=== PATIENT | male | born 1960 | race Hispanic/Latino ===

== ENCOUNTER 2021-09-28 12:58 | Outpatient (CLI) | payer OTHER | END 2021-09-28 12:59 | disposition home or self-care (01) | LOC: CSHWCC 12:58 | PROVIDERS: ATTEND Nurse Practitioner Family | DX: R60.0 Localized edema (principal) | CPT/HCPCS: 99203; G0463 ==

== ENCOUNTER 2024-01-14 08:08 | Outpatient (CLI) | payer MEDICARE, OTHER | END 2024-01-14 08:09 | disposition home or self-care (01) | LOC: CSHWCC 08:08 | PROVIDERS: ATTEND Nurse Practitioner Family | DX: E11.622 Type 2 diabetes mellitus with other skin ulcer (principal); I87.323 Chronic venous hypertension (idiopathic) with inflammation of bilateral lower extremity; L97.822 Non-pressure chronic ulcer of other part of left lower leg with fat layer exposed; E11.22 Type 2 diabetes mellitus with diabetic chronic kidney disease; N18.9 Chronic kidney disease, unspecified; C22.0 Liver cell carcinoma; I89.0 Lymphedema, not elsewhere classified; K76.82 Hepatic encephalopathy | CPT/HCPCS: 11042; 99213; G0463 ==

== ENCOUNTER 2024-02-21 14:23 | Outpatient (CLI) | payer MEDICARE | END 2024-02-21 14:24 | disposition home or self-care (01) | LOC: CSHWCC 14:23 | PROVIDERS: ATTEND Nurse Practitioner Family | DX: I87.323 Chronic venous hypertension (idiopathic) with inflammation of bilateral lower extremity (principal); E11.622 Type 2 diabetes mellitus with other skin ulcer; L97.822 Non-pressure chronic ulcer of other part of left lower leg with fat layer exposed; K76.82 Hepatic encephalopathy; E11.22 Type 2 diabetes mellitus with diabetic chronic kidney disease; N18.9 Chronic kidney disease, unspecified; C22.0 Liver cell carcinoma; I89.0 Lymphedema, not elsewhere classified | CPT/HCPCS: 99212; G0463 ==

== ENCOUNTER 2024-03-06 11:34 | Outpatient (CLI) | payer OTHER, MEDICARE | END 2024-03-06 11:35 | disposition home or self-care (01) | LOC: CSHWCC 11:34 | PROVIDERS: ATTEND Nurse Practitioner Family | DX: I87.323 Chronic venous hypertension (idiopathic) with inflammation of bilateral lower extremity (principal); E11.622 Type 2 diabetes mellitus with other skin ulcer; L97.822 Non-pressure chronic ulcer of other part of left lower leg with fat layer exposed; K76.82 Hepatic encephalopathy; N18.9 Chronic kidney disease, unspecified; C22.0 Liver cell carcinoma; I89.0 Lymphedema, not elsewhere classified | CPT/HCPCS: 99212; G0463 ==

== ENCOUNTER 2024-03-21 11:21 | Outpatient (CLI) | payer MEDICARE | END 2024-03-21 11:22 | disposition home or self-care (01) | LOC: CSHWCC 11:21 | PROVIDERS: ATTEND Nurse Practitioner Family | DX: I89.0 Lymphedema, not elsewhere classified (principal); K76.82 Hepatic encephalopathy; C22.0 Liver cell carcinoma; N18.9 Chronic kidney disease, unspecified; Z87.2 Personal history of diseases of the skin and subcutaneous tissue ==